=== PATIENT | female | born 1990 | race Caucasian/White ===

== ENCOUNTER 2019-05-11 10:56 | Emergency (ER) | payer OTHER ==
[~2019-05-11] VITALS: Ht 167.6 cm; Wt 81.6 kg
[2019-05-11 11:21] VITALS: BP 136/91
[2019-05-11] MEDS ORDERED: KETOROLAC TROMETHAMINE INJ 60 MG/2 ML VIAL IM ONE ×2 (12:30→13:02)
--- NOTE | 2019-05-11 13:41 | NUR ---
CALLED [facility] [phone] IT WILL BE READ SHORTLY.
--- NOTE | 2019-05-11 14:12 | NUR ---
Patient discharged to home in stable condition. Written and verbal after care instructions given. Patient verbalizes understanding of instruction.
== END 2019-05-11 15:03 | disposition home or self-care (01) ==
LOC: ER 10:56
DX: S00.211A Abrasion of right eyelid and periocular area, initial encounter (principal); M62.838 Other muscle spasm; V49.59XA Passenger injured in collision with other motor vehicles in traffic accident, initial encounter; Y93.89 Activity, other specified; Y92.413 State road as the place of occurrence of the external cause; Y99.8 Other external cause status
CPT/HCPCS: 70450; 72125; 84703; 96372; 99284; J1885